=== PATIENT | male | born 1990 | race Caucasian/White ===

== ENCOUNTER 2018-06-10 11:20 | Emergency (ER) | payer BC ==
[2018-06-10 11:33] VITALS: BP 144/79
--- NOTE | 2018-06-10 11:57 | UC ---
Respiratory Complaint HPI - HPI Summary HPI Summary: 1.dry cough x 45 days + chest congestion , + nasal congestion no pnd, no fever, no chills, no wheezing or sob, no hx of GERD 2 right testicular pain x 1 week, does not have pain now , no swelling, no redness , no n/v , no fever, dysuria pt. does a lot of heavy lifting - History of Current Complaint Chief Complaint: UCRespiratory Stated Complaint: COUGH RUNNY NOSE Time Seen by Provider: 06/10/18 11:29 Hx Obtained From: Patient Onset/Duration: Gradual Onset, Lasting Days - 45, Still Present Timing: Constant Severity Initially: Moderate Severity Currently: Moderate Pain Intensity: 0 Character: Cough: Nonproductive Aggravating Factors: Exertion, Deep Breaths Alleviating Factors: Nothing Associated Signs And Symptoms: Positive: Nasal Congestion. Negative: Dyspnea, Fever, Chills, Pleuritic Chest Pain, Wheezing, Hemoptysis, Dizziness, Calf Pain , Calf Swelling, Edema, URI, Hoarseness, Sinus Discomfort - Allergies/Home Medications Allergies/Adverse Reactions: Allergies Allergy/AdvReac Type Severity Reaction Status Date / Time No Known Allergies Allergy Verified 06/10/18 11:31 PMH/Surg Hx/FS Hx/Imm Hx - Additional Past Medical History Additional PMH: hx of testicular torsion - Surgical History Surgical History: Yes Surgery Procedure, Year, and Place: testicular torsion 2009 - Family History Known Family History: Negative: Diabetes - Social History Alcohol Use: None Substance Use Type: None Smoking Status (MU): Never Smoked Tobacco Review of Systems All Other Systems Reviewed And Are Negative: Yes Constitutional: Positive: Negative Skin: Positive: Negative Eyes: Positive: Negative ENT: Positive: Negative Respiratory: Positive: Cough Cardiovascular: Positive: Negative Is Patient Immunocompromised?: No Physical Exam Triage Information Reviewed: Yes Appearance: Well-Appearing, No Pain Distress, Well-Nourished Vital Signs: Initial Vital Signs Temp 98 F 06/10/18 11:31 Pulse 90 06/10/18 11:31 Resp 15 06/10/18 11:31 BP 144/79 06/10/18 11:31 Pulse Ox 97 06/10/18 11:31 Vital Signs Reviewed: Yes Eye Exam: Normal Eyes: Positive: Conjunctiva Clear ENT: Positive: Normal ENT inspection, Hearing grossly normal, Pharynx normal Neck exam: Normal Neck: Positive: Supple, Nontender, No Lymphadenopathy Respiratory: Positive: Chest non-tender, Lungs clear, Normal breath sounds, No respiratory distress Cardiovascular: Positive: RRR, No Murmur, Pulses Normal Abdominal Exam: Normal Abdomen Description: Positive: Nontender, No Organomegaly, Soft. Negative: CVA Tenderness (R), CVA Tenderness (L), Distended, Guarding Bowel Sounds: Positive: Present Male Genital Exam: Positive: Normal Genitalia. Negative: Epididymal Tenderness , Erythema, Hernia Mass, High Riding Prostate, Inguinal Tenderness, Lesions, Scrotum Tenderness (R), Scrotum Tenderness (L), Testicular Tenderness (R), Testicular Tenderness (L), Urethral Discharge Musculoskeletal Exam: Normal UC Diagnostic Evaluation - Laboratory O2 Sat by Pulse Oximetry: 97 Respiratory Course/Dx - Differential Dx/Diagnosis Provider Diagnosis: Cough, Testicular pain Discharge - Sign-Out/Discharge Documenting (check all that apply): Patient Departure All imaging exams completed and their final reports reviewed: No Studies - Discharge Plan Condition: Stable Disposition: HOME Prescriptions: Albuterol HFA INHALER* [Ventolin HFA Inhaler*] 2 puff INH Q6H PRN #1 mdi PRN Reason: Cough Benzonatate CAP* [Tessalon 100 MG CAP*] 100 mg PO TID #21 cap Fluticasone NASAL SPRAY 50MCG* [Flonase NASAL SPRAY 50MCG*] 2 spray BOTH NARES DAILY #1 btl Patient Education Materials: Chronic Cough (ED), Testicle Pain (ED) Referrals: Abdirizak Jacobson MD [Primary Care Provider] - 7 Days Additional Instructions: 1. chronic cough : could by due to post nasal drip / asthma / GERD / viral bronchitis will have you Try , flonase , albuterol and cough meds , drink extra fluid, follow up in 2 weeks if not better 2. testicular pain : normal exam at this time , might be due to working out and heavy lifting cont. with rest, no heavy lifting follow up if symptoms are worse , may need testicular ultrasound - Billing Disposition and Condition Condition: STABLE Disposition: Home
== END 2018-06-10 11:54 | disposition home or self-care (01) ==
LOC: UCCORT 11:20
DX: R05 Cough (principal); N50.812 Left testicular pain; N50.811 Right testicular pain
CPT/HCPCS: 99202; G0463

== ENCOUNTER 2018-12-27 12:21 | Emergency (ER) | payer BC ==
[2018-12-27 13:30] VITALS: BP 121/71
--- NOTE | 2018-12-27 13:44 | UC ---
Nausea/Vomiting/Diarrhea HPI - HPI Summary HPI Summary: 28 y/o male presents to the urgent care c/o diarrhea, sore throat and decrease appetite since Wednesday12/25/2018. He has abdominal cramping pain for a few seconds and then it is relief w/ watery BM. He reports he had to work overtime on Wednesday night and ate a gas station greasy pizza for dinner. He had 2 episodes of diarrhea Wednesday, then 2 yesterday and 1 this morning associated w/ gas. Sore throat 2/10 w/ swallowing. mild body aches. Pt denies fever, chills, cough, SOB, chest pain, N/V, rash, MARTIN. He has been drinking fluids, but has decrease appetite today. Pt denies recent travel or taken antibiotics recently. he states FMHx of chronz and IBS - History of Current Complaint Chief Complaint: UCGI Stated Complaint: DIARRHEA,ACHES,ST,NO APPETITE Time Seen by Provider: 12/27/18 13:43 Hx Obtained From: Patient Onset/Duration: Gradual Onset, Lasting Days - 3 days, Still Present Timing: Intermittent Episodes Lasting: Severity Initially: Mild Severity Currently: Mild Pain Intensity: 2 - sore throat Pain Scale Used: 0-10 Numeric Location: Diffuse - ache cramping abdominal pain relief w/ BM Character: Cramping Aggravating Factor(s): Food Alleviating Factor(s): NPO Nausea/Vomiting Presence: None Diarrhea Presence: Yes Diarrhea Frequency: Daily Diarrhea Duration: 24-36 hours Diarrhea Characteristics: Watery - Risk Factors Influenza Risk Factors: Negative Surgical Obstruction Risk Factor(s): Negative - Allergies/Home Medications Allergies/Adverse Reactions: Allergies Allergy/AdvReac Type Severity Reaction Status Date / Time No Known Allergies Allergy Verified 12/27/18 13:31 Home Medications: Home Medications NK [No Home Medications Reported] 12/27/18 [History Confirmed 12/27/18] PMH/Surg Hx/FS Hx/Imm Hx Previously Healthy: Yes - Pt denies PMHX - Surgical History Surgical History: Yes Surgery Procedure, Year, and Place: testicular torsion 2009 - Family History Known Family History: Negative: Diabetes Family History: chronz,IBS - Social History Occupation: Employed Full-time Lives: With Family Alcohol Use: None Substance Use Type: None Smoking Status (MU): Never Smoked Tobacco Review of Systems All Other Systems Reviewed And Are Negative: Yes Constitutional: Positive: Negative Skin: Positive: Negative Eyes: Positive: Negative ENT: Positive: Sore Throat Respiratory: Positive: Negative Cardiovascular: Positive: Negative Gastrointestinal: Positive: Abdominal Pain - cramping abdominal pain relief w/ BM, Diarrhea Genitourinary: Positive: Negative Motor: Positive: Negative Neurovascular: Positive: Negative Musculoskeletal: Positive: Negative Neurological: Positive: Negative Psychological: Positive: Negative Is Patient Immunocompromised?: No Physical Exam - Summary Physical Exam Summary: Vital Signs Reviewed: Yes General:Patient is a well developed and nourished male who is sitting comfortable in the examining table. Patient is not in any acute respiratory distress. Eyes: Positive: Conjunctiva Clear - PERRLA, EOMI, fundi grossly normal ENT: Positive: Normal ENT inspection, Hearing grossly normal, Pharynx normal, TMs normal Neck: Positive: Supple, Nontender, No Lymphadenopathy Respiratory: Positive: Chest non-tender, Lungs clear, Normal breath sounds, No respiratory distress Cardiovascular: Positive: RRR,S1 and S2 present, No Murmur, Pulses Normal, Brisk Capillary Refill Abdomen Description: Positive: Nontender, Other: - Abd: Flat with no distention. No surface trauma, scars, incisions. hyperactive bowel sounds present in all four quadrants. No tenderness, guarding, rigidity to palpation. No masses palpated, no pulsation in epigastric area. No organomegaly. Negative [place] signs. No periumbilical tenderness. No rebound in the lower quadrants. NT over [place] point. Good femoral pulses bilaterally. No hernia noted. No CVAT bilaterally Musculoskeletal: Positive: Strength Intact, ROM Intact, No Edema,FROM in all major joints, no edema, no cyanosis or clubbing. Neuro: Alert and oriented x 3. No acute neurological deficits. Speech is normal. Psychological: WNL Skin: Dry and warm Triage Information Reviewed: Yes Vital Signs: Initial Vital Signs Temp 97.7 F 12/27/18 13:25 Pulse 65 12/27/18 13:25 Resp 16 12/27/18 13:25 BP 121/71 12/27/18 13:25 Pulse Ox 99 12/27/18 13:25 Naus/Vom/Diarrhea Course/Dx - Course Course Of Treatment: 28 y/o male presents to the urgent care c/o diarrhea, sore throat and decrease appetite since Wednesday12/25/2018. He has abdominal cramping pain for a few seconds and then it is relief w/ watery BM. He reports he had to work overtime on Wednesday night and ate a gas station greasy pizza for dinner. He had 2 episodes of diarrhea Wednesday, then 2 yesterday and 1 this morning associated w/ gas. Sore throat 2/10 w/ swallowing. mild body aches. Pt denies fever, chills, cough, SOB, chest pain, N/V, rash, MARTIN. He has been drinking fluids, but has decrease appetite today. Pt denies recent travel or taken antibiotics recently. he states FMHx of chronz and IBS. Hx obtained. PE:WNL, except for mild pharyngitis on examination. Rapid strep ordered: negative. Pt most likely with a viral gastroenteritis and pharyngitis. Pt advised to take Ibuprofen PO for pain, increase fluid intake, eat soft meals, rest. If diarrhea worsens advised to take Imodium PO. However if symptoms worsen w/ abdominal pain and, recurrent episodes of diarrhea develops to go Immediately to the ER for further management. Pt explained D/C instructions. Pt understood and agreed w/ plan of care. Pt left the clinic ambulating, A&OX3 - Differential Dx/Diagnosis Differential Diagnoses - Male: Appendicitis, Gastroenteritis (Viral), Gastroenteritis (Bacterial), Vomiting, Diarrhea, Colitis Provider Diagnosis: Acute viral pharyngitis, Viral gastroenteritis Condition At Discharge: Stable Discharge - Sign-Out/Discharge Documenting (check all that apply): Patient Departure - D/C home All imaging exams completed and their final reports reviewed: No Studies - Discharge Plan Condition: Stable Disposition: HOME Patient Education Materials: Pharyngitis (ED), Gastroenteritis (ED) Forms: *Work Release Referrals: Abdirizak Jacobson MD [Primary Care Provider] - 3 Days Additional Instructions: 1- Please increase fluid intake w/ Pedialyte or Gatorade. eat soft meals and avoid strenuous exercise and rest 2-If Diarrhea worsens please take Imodium PO. 3-Please take ibuprofen PO q6-8hrs prn as instructed after meals to alleviate pain and swelling. Increase fluid intake, eat well, rest and avoid strenuous exercise 4-If symptoms do not improve or worsen please return to the urgent care or f/u with your PCP for further evaluation and treatment. 5- If you develops fever or abdominal pain w/ recurrent episodes of diarrhea please go to the ER, otherwise f/u with your PCP if diarrhea not resolving in 2- 3 days - Billing Disposition and Condition Condition: STABLE Disposition: Home
== END 2018-12-27 14:26 | disposition home or self-care (01) ==
LOC: UCCORT 12:21
DX: J02.8 Acute pharyngitis due to other specified organisms (principal); A08.4 Viral intestinal infection, unspecified; Z83.79 Family history of other diseases of the digestive system
CPT/HCPCS: 87651; 99211; G0463

== ENCOUNTER 2019-05-30 08:25 | Emergency (ER) | payer BC ==
[2019-05-30 09:09] VITALS: BP 119/67
--- NOTE | 2019-05-30 09:28 | UC ---
Skin Complaint HPI - HPI Summary HPI Summary: mouth lesions x 2 days had canker sores in his mouth for the pas week noted small dark lesions on his mouth , denies any pain, no trauma, no hx of easy bleeding, denies chewing tobacco, not a smoker - History of Current Complaint Chief Complaint: UCDentalProblem Time Seen by Provider: 05/30/19 09:18 Stated Complaint: BLACK SPOT ON CHECK Hx Obtained From: Patient Onset/Duration: Gradual Onset, Lasting Days - 2, Still Present Timing: Constant Onset Severity: Mild Current Severity: Mild Pain Intensity: 0 Location: Other - inner mouth Character: Redness Aggravating Factor(s): Nothing Alleviating Factor(s): Nothing Associated Signs & Symptoms: Positive: Negative - Allergy/Home Medications Allergies/Adverse Reactions: Allergies Allergy/AdvReac Type Severity Reaction Status Date / Time No Known Allergies Allergy Verified 05/30/19 09:05 PMH/Surg Hx/FS Hx/Imm Hx Previously Healthy: Yes - Surgical History Surgical History: Yes Surgery Procedure, Year, and Place: testicular torsion 2009. lasik Mar 2019 - Family History Known Family History: Negative: Diabetes Family History: chronz,IBS - Social History Alcohol Use: None Substance Use Type: None Smoking Status (MU): Never Smoked Tobacco Review of Systems All Other Systems Reviewed And Are Negative: Yes Constitutional: Positive: Negative Skin: Positive: Negative Eyes: Positive: Negative ENT: Positive: Negative Is Patient Immunocompromised?: No Physical Exam Triage Information Reviewed: Yes Appearance: Well-Appearing, No Pain Distress, Well-Nourished Vital Signs: Initial Vital Signs Temp 97.3 F 05/30/19 09:05 Pulse 67 05/30/19 09:05 Resp 16 05/30/19 09:05 BP 119/67 05/30/19 09:05 Pulse Ox 99 05/30/19 09:05 Vital Signs Reviewed: Yes Eye Exam: Normal Eyes: Positive: Conjunctiva Clear ENT Exam: Normal ENT: Positive: Normal ENT inspection, Hearing grossly normal, Other - 2 small petichea lesions right inner mouth, Neck exam: Normal Neck: Positive: Supple, Nontender, No Lymphadenopathy Respiratory: Positive: Chest non-tender, Lungs clear, Normal breath sounds Cardiovascular: Positive: RRR, No Murmur, Pulses Normal Course/Dx - Diagnoses Provider Diagnosis: Blood blister Discharge ED - Sign-Out/Discharge Documenting (check all that apply): Patient Departure All imaging exams completed and their final reports reviewed: No Studies - Discharge Plan Condition: Stable Disposition: HOME Patient Education Materials: Sha (ED) Referrals: Abdirizak Jacobson MD [Primary Care Provider] - (4 weeks) Additional Instructions: small blood blister/ petichia benign lesion cont. to monitor for about 4 weeks follow up if not better in 4 weeks - Billing Disposition and Condition Condition: STABLE Disposition: Home
--- OUTSIDE RECORDS SUMMARY | 2019-05-30 16:39 | XMS REPORT | Continuity of Care Document ---
:1990 External Reference #:[id number] Author Name Danielle Esquivel Address [address] [place] [address] Care Team Providers Name Role Phone Mauricio Cristobal O.D. Care Team Information Manager Employment [phone] Abdirizak Jacobson M.D. Care Team Information Manager Employment [phone] Problems Description No Information Available Social History Type Date Description Comments Sex Unknown Allergies, Adverse Reactions, Alerts Description No Information Available Medications History Medications SIG Qnty Indications Ordering Provider Date Valium 1 tablet every 3 3tabs Rickie Alvarado 03/23/2019 - 5mg Tablets hours as needed Bina Mccauley 03/31/2019 for anxiety History Medications Hydrocodone-Acetaminophen 1 by mouth 3tabs Rickie Alvarado 03/23/2019 - 5-325mg Tablets every 4-6 Bina Mccauley 03/31/2019 hours as needed for pain Tobradex 1 drop four 5ml Rickie Alvarado 03/23/2019 - 0.3-0.1% Suspension times per Bina Mccauley 04/06/2019 day both eyes Immunizations Description No Information Available Vital Signs Description No Information Available Results Description No Information Available Procedures Description No Information Available Medical Devices Description No Information Available Encounters Description No Information Available Assessments Date Code Description Provider 03/31/2019 H52.13 Myopia, bilateral Rickie Mccauley M.D. 03/30/2019 H52.13 Myopia, bilateral Rickie Mccauley M.D. 03/01/2019 H52.13 Myopia, bilateral Rickie Mccauley M.D. Plan of Treatment Future Appointment(s):05/03/2019 8:00 am - Rickie Mccauley M.D. at Main Office Functional Status Description No Information Available Mental Status Description No Information Available Referrals Description No Information Available
--- OUTSIDE RECORDS SUMMARY | 2019-05-30 16:39 | XMS REPORT | Continuity of Care Document ---
:1990 External Reference #:[id number] Author Name Phi Meléndez M.D. (transmitted by agent of provider Rowan Cook) Address [address] [address] Care Team Providers Name Role Phone Josemanuel Almonte MD - Internal Care Team Information Administrative Services Manager [phone] Medicine Abdirizak Jacobson MD - Family Medicine Care Team Information Administrative Services Manager Problems Description No Information Available Social History Type Date Description Comments Sex Unknown ETOH Use Denies alcohol use Tobacco Use Start: Unknown Patient has never smoked Recreational Drug Use Denies Drug Use Smoking Status Reviewed: 04/28/19 Patient has never smoked Allergies, Adverse Reactions, Alerts Description No Known Drug Allergies Medications Active Medications SIG Qnty Indications Ordering Provider Date Fuel Pre Workout(Has 1 tablespoon in Unknown Caffeine Powder water daily Care Of 1 packet daily Unknown Vitamins=Mag,Erik,Prob iotic,Vit C,Iron Dymatize Creatine 5 2 teaspoons in Unknown Gram Powder water daily Gat Sport Testrol 2 tabs by mouth Unknown Testosterone Tabs daily Synthane Eye Drops 1 gtt in each eye Unknown every 4 hrs as needed Immunizations CPT Code Status Date Vaccine Lot # [id number] Given 06/24/2000 Hep B Pediatric/Adolescent Vital Signs Date Vital Result Comment 04/28/2019 9:16am Height 70 inches 5'10" Weight 189.00 lb Heart Rate 68 /min regular BP Systolic 120 mmHg Ra Regular Cuff BP Diastolic 82 mmHg Ra Regular Cuff BP Systolic Sitting 122 mmHg LA Reguar Cuff BP Diastolic Sitting 74 mmHg LA Reguar Cuff BP Systolic Standing 118 mmHg LA Regular Cuff BP Diastolic Standing 78 mmHg LA Regular Cuff Respiratory Rate 16 /min Pain Level 0 O2 % BldC Oximetry 98 % BMI (Body Mass Index) 27.1 kg/m2 Results Description No Information Available Procedures Date Code Description Status 04/28/2019 68278 EKG Tracing & Interpretation Completed Medical Devices Description No Information Available Encounters Description No Information Available Assessments Date Code Description Provider 04/28/2019 R53.83 Other fatigue Phi Meléndez M.D. 04/28/2019 R06.02 Shortness of breath Phi Meléndez M.D. 04/28/2019 R06.83 Snoring Phi Meléndez M.D. Plan of Treatment 04/28/2019 - Phi Meléndez M.D.R53.83 Other [id number] Shortness of breathNew Orders:Stress Test, Exercise Echocardiogram, Ordered: Echocardiogram, Ordered: 04/28/19Follow up:ov 05/2019 or 06/2019 to discuss all [id number] SnoringReferral:Kate Segura MD, Pulmonary Diseases Functional Status Description No Information Available Mental Status Description No Information Available Referrals Refer to Reason for Referral Status Appt Date Kate Segura MD consult for sleep apnea Created [address] [place] [id number] [phone]
== END 2019-05-30 09:27 | disposition home or self-care (01) ==
LOC: UCCORT 08:25
DX: S00.522A Blister (nonthermal) of oral cavity, initial encounter (principal); X58.XXXA Exposure to other specified factors, initial encounter; Y92.9 Unspecified place or not applicable
CPT/HCPCS: 99211; G0463